=== PATIENT | female | born 2000 | race Two or more races ===

== ENCOUNTER 2018-06-01 10:41 | Emergency (ER) | payer MEDICAID ==
[~2018-06-01] VITALS: Ht 154.9 cm; Wt 47.2 kg
[2018-06-01 11:16] VITALS: BP 113/64
== END 2018-06-01 13:36 | disposition home or self-care (01) ==
LOC: ER 10:41
DX: S06.0X0A Concussion without loss of consciousness, initial encounter (principal); S00.93XA Contusion of unspecified part of head, initial encounter; V43.52XA Car driver injured in collision with other type car in traffic accident, initial encounter; Y93.89 Activity, other specified; Y99.8 Other external cause status; Y92.410 Unspecified street and highway as the place of occurrence of the external cause
CPT/HCPCS: 81025